=== PATIENT | male | born 1975 ===

== ENCOUNTER → 2018-10-30 | Outpatient (CLI) | payer OTHER ==
[~2018-10-30] MED LIST: CYCL10TA2 PO; GABA600T PO; METH-37 PO; TRAZ-118 PO
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
== END | disposition home or self-care (01) ==
LOC: EEVIPCON 07:50 → PNCL 07:53
PROVIDERS: ATTEND Anesthesiology
DX: M79.602 Pain in left arm (principal); M54.2 Cervicalgia; M19.90 Unspecified osteoarthritis, unspecified site; Z87.891 Personal history of nicotine dependence; Z80.9 Family history of malignant neoplasm, unspecified; Z81.8 Family history of other mental and behavioral disorders
CPT/HCPCS: G0463

== ENCOUNTER → 2018-11-16 | Outpatient (CLI) | payer OTHER ==
[~2018-11-16] MED LIST changes: +IOHEXOL 180 MG/ML 10 ML VIAL. ONE; +methylPREDNISolone ACETATE 40 MG/ML VIAL. ONE; +methylPREDNISolone ACETATE 80 MG/ML VIAL. ONE
--- NOTE | 2018-11-16 22:45 | PAIN ---
DATE OF SERVICE: 11/16/2018 PROGRESS NOTE FOR PAIN CLINIC: DIAGNOSES: Cervical radiculopathy with cervical spinal stenosis and cervical degenerative disk disease. HISTORY OF PRESENT ILLNESS: The patient is a 43-year-old male who returns for followup status post initial evaluation and preauthorization for injection today. The patient reports still significant pain in the left arm with numbness and tingling on to the left hand as well as it was previously. The patient reports it is a 5 on a scale of 10 at its worst, 3 on average, 2 at its least and a 3 today. The patient reports tingling, aching, dull in the neck and sharp and shooting into the left upper arm, mid arm, forearm that is and into the thumb and first finger with numbness and tingling and this is becoming more constant in the hand. The patient has decreased his gabapentin to a mild extent approximately 25% and the pain did increase with this. He wanted to see if his injections today would be more effective with less dose of gabapentin. I told him he did not need to do this, but he would like to proceed with the injection today as it was approved, we had suggested or had requested a transforaminal selective nerve root for C6-C7 on the left. He was only approved for a translaminar C6-C7 epidural injection on the left, so we will proceed with that today as his insurance has only approved him for this procedure, specifically. The patient reports still no new motor or sensory deficits, no new changes or other complaints. PHYSICAL EXAMINATION: VITAL SIGNS: The patient's blood pressure 130/99, pulse 88, respirations 16, temperature 97.8 degrees Fahrenheit, height is 5 feet 8 inches, weight is 226 pounds. GENERAL: The patient is awake, alert, oriented, appropriate, very pleasant demeanor. HEENT: Head is normocephalic, atraumatic. Extraocular movements are intact and symmetrical. Oral cavity: Mucous membranes moist and pink. Dentition is intact. NECK: Shows anterior throat supple without palpable lymphadenopathy noted. Swallow reflex symmetrical. CHEST: Shows normal with inspection. Breath sounds clear to auscultation bilaterally. HEART: Shows S1, S2 clear. No murmurs auscultated. ABDOMEN: Soft, nontender, nondistended. No palpable organomegaly is noted. No rebound or guarding demonstrated. BACK: Shows spine grossly in the midline, normal-appearing cervical lordotic curvature, thoracic kyphotic curvature and lumbar lordotic curvature. Cervical paraspinous muscle shows symmetrical on inspection, with palpation shows some moderate tenderness, more in the left than the right inferior aspect of the cervical paraspinous musculature without radiation. The patient has good rotational motion of cervical spine, both laterally as well as extension and flexion without significant increase in pain. EXTREMITIES: Upper extremities show deep tendon reflexes 2+ in the biceps and triceps tendons. Motor exam is approximately 4 on a scale 5 on the left and 5/5 on the right with airline flight attendant strength, bicep and tricep flexion is about 5/5 bilaterally. Peripheral pulses are 2+ radial distribution. No peripheral edema is noted. Options were discussed with the patient. The patient's old chart was reviewed as his current medication regimen updated. Current review of systems updated today as well and we will proceed with a cervical epidural steroid injection today translaminar fashion at the C6-C7 level on the left. Risks were again discussed including, but not limited to bleeding, infection, possibility of epidural hematoma, subsequent neurologic compromise, dural puncture, headaches, spinal cord and/or nerve damage, side effects of steroid medication and poor results regarding pain control. The patient understands and wished to proceed. The patient will return to clinic in approximately 2 weeks for followup, was counseled on return appointment, activity level and side effects to be aware of. DIAGNOSES: Cervical radiculopathy with cervical spinal stenosis and cervical degenerative disk disease. PROCEDURE: Cervical epidural steroid injection, translaminar approach at C6-C7 level on the left under sterile prep and drape using local anesthetic. MEDICATION INJECTED: A total of 120 mg Depo-Medrol plus 5 mL of preservative-free normal saline and 2 mL of Isovue for contrast. CONDITION AT DISCHARGE: Stable. The patient tolerated procedure well, had no complications. ROSIE GROVES MD DR: HAMMAD/elvin JOB#: [id number] / [id number]
== END | disposition home or self-care (01) ==
LOC: PNCL 07:36
PROVIDERS: ATTEND Anesthesiology
DX: M50.123 Cervical disc disorder at C6-C7 level with radiculopathy (principal); M48.02 Spinal stenosis, cervical region
CPT/HCPCS: 62321; J1030; J1040; Q9965